=== PATIENT | female | born 1990 | race Caucasian/White ===

== ENCOUNTER 2016-07-02 23:43 | Emergency (ER) | payer OTHER ==
[~2016-07-02] VITALS: Ht 175.2 cm; Wt 72.6 kg
[~2016-07-02 23:43] MED LIST: ALBUTEROL0.09 MG/A2 IH; AMOXICILLIN500 M2 PO; AMOXICILLIN500 MG PO; AMOXIL500 MG PO; ANTI-FUNGAL1% TP; ANTIVERT/2525 MG PO; AUGMENTIN 875 M1 TAB PO; AUGMENTIN 875875 MG PO; BACTRIM DS 8001 TA1 PO; BIAXIN500 MG PO; BIRTH CONTROL1 EAC1 PO; CARDI-OMEGA1000 MG PO; CELEXA10 MG PO; CIPRO250 MG PO; CLARITIN10 MG PO; CODEINE/GUAIFE120 M2 PO; DEBROX 15 ML 1515 ML OT; FERROUS SULFAT325 MG PO; FLEXERIL10 MG PO; FLEXERIL5 MG PO; Fioricet 325 MG1 TAB PO; KEFLEX500 MG PO; LEVOFLOXACIN500 MG PO; LOMOTIL 0.025 M1 TA1 PO; MACROBID100 M1 PO; MEDROL DOSEPAK4 MG PO; MOTRIN600 MG PO; MOTRIN800 MG PO; NITROFURANTOIN100 MG PO; NKHM; NO DAILY MEDS; PEPCID20 MG PO; PREDNICOT20 MG PO; PREDNISONE20 MG PO; PRENATAL1 TA2 PO; PRENATAL1 TA7 PO; PROVENTIL0.09 MG/AC IH; PSEUDOEPHEDRINE60 MG PO; PYRIDIUM200 MG PO; SEPTRA DS 800 M1 TAB PO; TOBRADEX 0.1%-0.5 ML OPH; TRAMADOL HCL50 MG PO; TYLENOL WITH CO1 TAB PO; ZANTAC 150150 MG PO; ZANTAC150 MG PO; ZITHROMAX Z PA250 MG PO; ZITHROMAX250 MG PO; ZOFRAN ODT4 MG SL; ZOFRAN4 MG PO; ZYRTEC10 MG PO; Zofran4 MG; Zofran4 MG PO
[2016-07-03] MEDS ORDERED: BACTRIM DS 8001 TA1 PO (00:09)
[2016-07-03] MEDS ORDERED: NAPROSYN500 MG PO (00:09)
[2016-07-03] MEDS ORDERED: CEPHALEXIN500 M1 PO (00:09)
== END 2016-07-03 00:16 | disposition home or self-care (01) ==
LOC: ED 23:43
DX: J34.0 Abscess, furuncle and carbuncle of nose (principal); F17.200 Nicotine dependence, unspecified, uncomplicated; Z90.49 Acquired absence of other specified parts of digestive tract

== ENCOUNTER 2016-09-25 16:06 | Emergency (ER) | payer OTHER ==
[~2016-09-25] VITALS: Wt 72.6 kg
[~2016-09-25 16:06] MED LIST changes: +CEPHALEXIN500 M1 PO; +NAPROSYN500 MG PO
[2016-09-25 16:42] LABS: BILIRUBIN 1+ (NEGATIVE); BLOOD TRACE-INTACT (NEGATIVE); CLARITY CLOUDY (CLEAR); COLOR YELLOW (YELLOW); GLUCOSE NEGATIVE (NEGATIVE); KETONE NEGATIVE (NEGATIVE); LEUKO ESTERASE 1+ (NEGATIVE); NITRITE NEGATIVE (NEGATIVE); PH 5.5 (5.0-9.0); PROTEIN TRACE (NEGATIVE); SPECIFIC GRAVITY >= 1.030 (1.005-1.030)
[2016-09-25 17:03] LABS: BASO % 0.4 % (0.0-1.0); EOS # 0.2 10*3/uL (0.0-0.4); EOS % 1.8 % (1.0-4.0); HEMATOCRIT 40.7 % (37.0-47.0); HEMOGLOBIN 13.9 g/dl (12.0-16.0); LYMPH # 2.1 10*3/uL (1.3-4.4); LYMPH % 22.4 % (27.0-41.0); MEAN CELL VOLUME 89.8 fl (81.0-99.0); MEAN CORPUSCULAR HGB 30.7 pg (27.0-31.0); MEAN CORPUSCULAR HGB CONC 34.2 g/dl (33.0-37.0); MEAN PLATELET VOLUME 11.1 fl (9.6-12.3); MONO # 0.6 10*3/uL (0.1-1.0); MONO % 6.4 % (3.0-9.0); NEUT # 6.5 10*3/uL (2.3-7.9); NEUT % 68.6 % (47.0-73.0); PLATELET COUNT AUTOMATED 144 10*3/uL (130-400); RED BLOOD COUNT 4.53 10*6/uL (4.10-5.10); RED CELL DISTRI WIDTH 12.3 % (0-14.5); WHITE BLOOD COUNT 9.5 10*3/uL (4.8-10.8)
[2016-09-25 17:04] LABS: BACTERIA 2+; MUCOUS 1+; RBC 0-2 rbc/hpf (0-2); URINE REFLEX COMMENT YES (NO)
[2016-09-25 17:20] LABS: ALBUMIN 3.8 gm/dl (3.1-4.5); ALKALINE PHOSPHATASE 53 U/L (45-117); BILIRUBIN, TOTAL 0.9 mg/dl (0.2-1.0); BUN 9 mg/dl (7-24); CARBON DIOXIDE 24 mmol/L (21-32); CHLORIDE 108 mmol/L (98-107); EST GLOM FILT AFRICAN AMERICAN > 60 ml/min; GLUCOSE 79 mg/dL (65-99); SGOT/AST 12 IU/L (3-35); SGPT/ALT 20 U/L (12-78); SODIUM 141 mmol/L (136-145); TOTAL PROTEIN 6.5 gm/dL (6.4-8.2)
[2016-09-25 17:23] LABS: B-hCG (QUALITATIVE) NEGATIVE (NEGATIVE)
[2016-09-25] MEDS ORDERED: BACTRIM DS 8001 TA1 PO (19:21)
== END 2016-09-25 19:22 | disposition home or self-care (01) ==
LOC: ED 16:06
PROVIDERS: Emergency Medicine; Physician Assistant
DX: N30.01 Acute cystitis with hematuria (principal); F17.200 Nicotine dependence, unspecified, uncomplicated; Z90.49 Acquired absence of other specified parts of digestive tract

== ENCOUNTER → 2016-10-04 | Outpatient (CLI) | payer OTHER | END | disposition home or self-care (01) | LOC: US 12:07 | DX: R10.2 Pelvic and perineal pain (principal); R10.32 Left lower quadrant pain ==

== ENCOUNTER 2017-01-13 09:44 | Emergency (ER) | payer OTHER ==
[~2017-01-13] VITALS: Ht 175.2 cm; Wt 68.0 kg
[2017-01-13 10:17] LABS: BASO % 0.3 % (0.0-1.0); EOS # 0.1 10*3/uL (0.0-0.4); EOS % 1.5 % (1.0-4.0); HEMATOCRIT 43.7 % (37.0-47.0); HEMOGLOBIN 14.7 g/dl (12.0-16.0); LYMPH # 2.2 10*3/uL (1.3-4.4); LYMPH % 23.8 % (27.0-41.0); MEAN CELL VOLUME 91.8 fl (81.0-99.0); MEAN CORPUSCULAR HGB 30.9 pg (27.0-31.0); MEAN CORPUSCULAR HGB CONC 33.6 g/dl (33.0-37.0); MEAN PLATELET VOLUME 11.1 fl (9.6-12.3); MONO # 0.9 10*3/uL (0.1-1.0); MONO % 9.8 % (3.0-9.0); NEUT # 5.8 10*3/uL (2.3-7.9); NEUT % 64.3 % (47.0-73.0); PLATELET COUNT AUTOMATED 163 10*3/uL (130-400); RED BLOOD COUNT 4.76 10*6/uL (4.10-5.10); RED CELL DISTRI WIDTH 12.6 % (0-14.5); WHITE BLOOD COUNT 9.1 10*3/uL (4.8-10.8)
[2017-01-13 10:17] LABS: BILIRUBIN NEGATIVE (NEGATIVE); BLOOD 3+ (NEGATIVE); CLARITY CLOUDY (CLEAR); COLOR YELLOW (YELLOW); GLUCOSE NEGATIVE (NEGATIVE); KETONE NEGATIVE (NEGATIVE); LEUKO ESTERASE 3+ (NEGATIVE); NITRITE POSITIVE (NEGATIVE); PH 5.5 (5.0-9.0); PROTEIN 2+ (NEGATIVE); SPECIFIC GRAVITY 1.025 (1.005-1.030); UROBILINOGEN 0.2 E.U./dl (0.2-1.0)
[2017-01-13 10:22] LABS: URINE REFLEX COMMENT YES (NO)
[2017-01-13 10:25] LABS: BACTERIA 4+; RBC TNTC rbc/hpf (0-2); WBC TNTC wbc/hpf (0-5)
[2017-01-13 10:34] LABS: ALBUMIN 3.8 gm/dl (3.1-4.5); ALKALINE PHOSPHATASE 57 U/L (45-117); BILIRUBIN, TOTAL 0.5 mg/dl (0.2-1.0); BUN 9 mg/dl (7-24); CARBON DIOXIDE 25 mmol/L (21-32); CHLORIDE 107 mmol/L (98-107); EST GLOM FILT AFRICAN AMERICAN > 60 ml/min; GLUCOSE 89 mg/dL (65-99); POTASSIUM 4.1 mmol/L (3.5-5.1); SGOT/AST 11 IU/L (3-35); SGPT/ALT 17 U/L (12-78); SODIUM 140 mmol/L (136-145); TOTAL PROTEIN 7.4 gm/dL (6.4-8.2)
[2017-01-13] MEDS ORDERED: CIPRO500 MG PO (12:47)
[2017-01-13] MEDS ORDERED: NAPROSYN500 MG PO (12:47)
[2017-01-13] MEDS ORDERED: PYRIDIUM200 M1 PO (12:47)
== END 2017-01-13 12:53 | disposition home or self-care (01) ==
LOC: ED 09:44
PROVIDERS: Nurse Practitioner Family
DX: N39.0 Urinary tract infection, site not specified (principal); N83.202 Unspecified ovarian cyst, left side; F17.200 Nicotine dependence, unspecified, uncomplicated; Z90.49 Acquired absence of other specified parts of digestive tract; Z79.899 Other long term (current) drug therapy

== ENCOUNTER → 2017-01-15 | Outpatient (CLI) | payer OTHER ==
[~2017-01-15] MED LIST changes: +CIPRO500 MG PO; +PYRIDIUM200 M1 PO
== END | disposition home or self-care (01) ==
LOC: US 09:57
DX: R10.2 Pelvic and perineal pain (principal)

== ENCOUNTER → 2017-02-05 | Day surgery (SDC) | payer OTHER ==
[2017-02-01 11:13] LABS: BASO # 0.1 10*3/uL (0.0-0.1); BASO % 0.6 % (0.0-1.0); EOS # 0.3 10*3/uL (0.0-0.4); EOS % 3.1 % (1.0-4.0); HEMATOCRIT 45.9 % (37.0-47.0); HEMOGLOBIN 15.4 g/dl (12.0-16.0); LYMPH # 2.5 10*3/uL (1.3-4.4); LYMPH % 28.3 % (27.0-41.0); MEAN CELL VOLUME 91.6 fl (81.0-99.0); MEAN CORPUSCULAR HGB 30.7 pg (27.0-31.0); MEAN CORPUSCULAR HGB CONC 33.6 g/dl (33.0-37.0); MONO # 0.6 10*3/uL (0.1-1.0); MONO % 7.1 % (3.0-9.0); NEUT # 5.3 10*3/uL (2.3-7.9); NEUT % 60.7 % (47.0-73.0); PLATELET COUNT AUTOMATED 197 10*3/uL (130-400); RED BLOOD COUNT 5.01 10*6/uL (4.10-5.10); RED CELL DISTRI WIDTH 12.7 % (0-14.5); WHITE BLOOD COUNT 8.8 10*3/uL (4.8-10.8)
[~2017-02-05] VITALS: Ht 175.2 cm; Wt 69.4 kg
[2017-02-05] VITALS (7 sets, daily range): BP systolic 112–126; BP diastolic 61–80
[~2017-02-05] MED LIST changes: +PERCOCET 325 MG1 TA5 PO
--- NOTE | ~2017-02-05 | O ---
[place], [place] OPERATIVE NOTE [facility]: 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 PROCEDURE: Diagnostic and operative laparoscopy and left salpingo-oophorectomy as well as obtaining posterior cul-de-sac fluid for cytology. SURGEON: Griselda Ramirez M.D. ANESTHESIA: General. ESTIMATED BLOOD LOSS: Minimal. REPLACEMENTS: IV fluids and Toradol. COMPLICATIONS: There were no complications. CONDITION: The patient's condition to recovery stable. OPERATIVE SUMMARY: The patient was taken to the operating room in supine position, general anesthesia, endotracheal intubation, lithotomy position, prepped and draped in routine manner. Rojas catheter was placed to straight drain and the cervix was then grasped with tenaculum and a cervical manipulator placed. Infraumbilical suprapubic and right lower quadrant incisions were made. Through the infraumbilical incision, a 5 mm trocar sleeve and laparoscope were placed under direct visualization followed by insufflation of CO2. Once that was completed, the suprapubic 5 mm trocar and sleeve were placed and after we had performed an evaluation revealing the uterus to be consistent with adenomyosis being extremely compressible, but otherwise normal in size, configuration, mobility and after noting that the anterior cul-de-sac was normal, the right tube and ovary was normal. The left tube was normal, but the left ovary revealed a rather elongated large cystic structure again with no apparent viable ovarian tissue noted. After again looking at the posterior cul-de-sac and removing the peritoneal fluid for cytology, we examined the upper abdomen revealing no atypicalities. The appendix, liver edge, colon, inferior gastric edge, etc., were all completely within normal limits with no gross atypicalities apparent in the upper abdomen. We then introduced through right lower quadrant incision, a larger trocar and sleeve, so we could use the EndoCatch through. We introduced our LigaSure and performed a left salpingo-oophorectomy without complication and placed the left ovary and tube in the EndoCatch bag. We pulled it to the surface. We partially drained the cyst to allow us to then remove the ovary and cyst within the EndoCatch bag intact. We drained any fluid from this exterior to the abdomen as a precaution. Once this was completed, we observed carefully operative sites. We looked at the ureters noted to be peristalsing normally and nondistended. We observed again the rest of the pelvis one more time and revealed no gross abnormalities. We [place], [place] OPERATIVE NOTE NAME: ORLY ROGERS UNIT #: [id number] ROOM: DOCTOR: GRISELDA RAMIREZ MD BIRTHDATE: [birth year] then closed the right lower quadrant incision with a running intermittent and locking 0 Vicryl suture for the fascia, #2 interrupted 3-0 Vicryl, 3-0 Monocryl sutures, subcutaneous tissue and the skin was closed with several subcuticular 3-0 Monocryl sutures whereas the other 2 incisions had a subcuticular placement of 3-0 Monocryl suture and all had Steri-Strips and dressings placed. We then removed the Rojas and noted about 300 mL of clear urine and finally removed instrumentation from the cervix and noted good hemostasis, thereafter. The patient was cleaned off, taken out of lithotomy position, awakened, extubated and transferred to recovery in satisfactory condition with stable sponge and instrument count, good hemostasis and stable vital signs. GRISELDA RAMIREZ MD CM:OPRECORD:OPERATIVE NOTE [id number] JAMES RAMIREZ MD 02/05/17 1200 interface
== END | disposition home or self-care (01) ==
LOC: SDC 02-01 10:15
PROVIDERS: Obstetrics & Gynecology
DX: N83.8 Other noninflammatory disorders of ovary, fallopian tube and broad ligament (principal); F17.210 Nicotine dependence, cigarettes, uncomplicated; J45.909 Unspecified asthma, uncomplicated; Z90.49 Acquired absence of other specified parts of digestive tract; Z88.8 Allergy status to other drugs, medicaments and biological substances; Z80.42 Family history of malignant neoplasm of prostate; Z80.0 Family history of malignant neoplasm of digestive organs

== ENCOUNTER 2017-03-20 21:02 | Emergency (ER) | payer OTHER ==
[~2017-03-20] VITALS: Ht 175.2 cm; Wt 70.3 kg
[2017-03-20] MEDS ORDERED: ZOLOFT25 MG PO (21:13)
[2017-03-20 21:51] LABS: BASO % 0.4 % (0.0-1.0); EOS # 0.2 10*3/uL (0.0-0.4); EOS % 1.7 % (1.0-4.0); HEMATOCRIT 40.6 % (37.0-47.0); HEMOGLOBIN 13.7 g/dl (12.0-16.0); LYMPH # 2.2 10*3/uL (1.3-4.4); LYMPH % 24.3 % (27.0-41.0); MEAN CELL VOLUME 93.1 fl (81.0-99.0); MEAN CORPUSCULAR HGB 31.4 pg (27.0-31.0); MEAN CORPUSCULAR HGB CONC 33.7 g/dl (33.0-37.0); MEAN PLATELET VOLUME 10.7 fl (9.6-12.3); MONO # 0.5 10*3/uL (0.1-1.0); MONO % 5.8 % (3.0-9.0); NEUT # 6.1 10*3/uL (2.3-7.9); NEUT % 67.5 % (47.0-73.0); PLATELET COUNT AUTOMATED 181 10*3/uL (130-400); RED BLOOD COUNT 4.36 10*6/uL (4.10-5.10); RED CELL DISTRI WIDTH 12.1 % (0-14.5); WHITE BLOOD COUNT 9.1 10*3/uL (4.8-10.8)
[2017-03-20 22:08] LABS: ALBUMIN 3.7 gm/dl (3.1-4.5); ALKALINE PHOSPHATASE 53 U/L (45-117); BUN 15 mg/dl (7-24); CHLORIDE 107 mmol/L (98-107); CREATININE 0.87 mg/dL (0.55-1.02); POTASSIUM 3.7 mmol/L (3.5-5.1); SGOT/AST 9 IU/L (3-35); SGPT/ALT 13 U/L (12-78); SODIUM 140 mmol/L (136-145); TOTAL PROTEIN 6.9 gm/dL (6.4-8.2)
[2017-03-20 22:10] LABS: TROPONIN I < 0.015 ng/ml (<0.045)
== END 2017-03-21 00:45 | disposition home or self-care (01) ==
LOC: ED 21:02
PROVIDERS: Emergency Medicine Emergency Medical Services
DX: R55 Syncope and collapse (principal); F17.200 Nicotine dependence, unspecified, uncomplicated; Z90.49 Acquired absence of other specified parts of digestive tract; Z79.899 Other long term (current) drug therapy; Z88.6 Allergy status to analgesic agent

== ENCOUNTER 2017-08-06 10:35 | Emergency (ER) | payer OTHER ==
[~2017-08-06] VITALS: Ht 175.2 cm; Wt 72.6 kg
[~2017-08-06 10:35] MED LIST changes: +ZOLOFT25 MG PO
[2017-08-06] MEDS ORDERED: MIRENA1 EACH IU (10:47)
[2017-08-06 11:14] LABS: BILIRUBIN NEGATIVE (NEGATIVE); BLOOD NEGATIVE (NEGATIVE); CLARITY CLEAR (CLEAR); COLOR YELLOW (YELLOW); GLUCOSE NEGATIVE (NEGATIVE); KETONE NEGATIVE (NEGATIVE); LEUKO ESTERASE NEGATIVE (NEGATIVE); NITRITE NEGATIVE (NEGATIVE); PH 5.5 (5.0-9.0); SPECIFIC GRAVITY 1.025 (1.005-1.030); UROBILINOGEN 0.2 E.U./dl (0.2-1.0)
[2017-08-06 11:25] LABS: BASO # 0.1 10*3/uL (0.0-0.1); BASO % 0.6 % (0.0-1.0); EOS # 0.2 10*3/uL (0.0-0.4); EOS % 2.3 % (1.0-4.0); HEMATOCRIT 43.9 % (37.0-47.0); LYMPH # 2.3 10*3/uL (1.3-4.4); MEAN CELL VOLUME 91.8 fl (81.0-99.0); MEAN CORPUSCULAR HGB 31.4 pg (27.0-31.0); MEAN CORPUSCULAR HGB CONC 34.2 g/dl (33.0-37.0); MEAN PLATELET VOLUME 11.4 fl (9.6-12.3); MONO # 0.5 10*3/uL (0.1-1.0); MONO % 5.4 % (3.0-9.0); NEUT # 5.2 10*3/uL (2.3-7.9); NEUT % 63.3 % (47.0-73.0); PLATELET COUNT AUTOMATED 167 10*3/uL (130-400); RED BLOOD COUNT 4.78 10*6/uL (4.10-5.10); RED CELL DISTRI WIDTH 12.2 % (0-14.5); WHITE BLOOD COUNT 8.3 10*3/uL (4.8-10.8)
[2017-08-06 11:40] LABS: BACTERIA 1+; WBC 0-2 wbc/hpf (0-5)
[2017-08-06 11:44] LABS: ALBUMIN 4.1 gm/dl (3.1-4.5); ALKALINE PHOSPHATASE 61 U/L (45-117); BUN 12 mg/dl (7-24); CHLORIDE 109 mmol/L (98-107); CREATININE 0.67 mg/dL (0.55-1.02); SGOT/AST 12 IU/L (3-35); SGPT/ALT 35 U/L (12-78); SODIUM 141 mmol/L (136-145); TOTAL PROTEIN 7.4 gm/dL (6.4-8.2)
[2017-08-06 11:45] LABS: FREE T4 0.88 ng/dl (0.76-1.46)
[2017-08-06 11:51] LABS: B-hCG (QUALITATIVE) NEGATIVE (NEGATIVE)
== END 2017-08-06 12:38 | disposition home or self-care (01) ==
LOC: ED 10:35
PROVIDERS: Physician Assistant
DX: R55 Syncope and collapse (principal); F17.200 Nicotine dependence, unspecified, uncomplicated; Z90.49 Acquired absence of other specified parts of digestive tract; Z79.899 Other long term (current) drug therapy

== ENCOUNTER → 2017-08-29 | Outpatient (CLI) | payer OTHER ==
[~2017-08-29] MED LIST changes: +MIRENA1 EACH IU
[2017-08-30 07:05] LABS: ESTRADIOL 88.8 pg/mL (.); FOLLICLE STIMULATING HORMONE 3.3 mIU/mL (.); LUTEINIZING HORMONE 004283 2.8 mIU/mL (.)
== END | disposition home or self-care (01) ==
LOC: LAB 08:58
PROVIDERS: Family Medicine
DX: E55.9 Vitamin D deficiency, unspecified (principal); N95.1 Menopausal and female climacteric states

== ENCOUNTER → 2018-05-06 | Outpatient (CLI) | payer OTHER | END | disposition home or self-care (01) | LOC: US 10:04 | DX: R10.2 Pelvic and perineal pain (principal); Z90.721 Acquired absence of ovaries, unilateral ==

== ENCOUNTER 2018-07-17 06:25 | Emergency (ER) | payer OTHER ==
[~2018-07-17] VITALS: Ht 175.2 cm; Wt 72.6 kg
[2018-07-17] MEDS ORDERED: ZOFRAN4 MG PO (07:37)
[2018-07-17 07:48] LABS: BASO % 0.4 % (0.0-1.0); EOS # 0.3 10*3/uL (0.0-0.4); EOS % 3.1 % (1.0-4.0); HEMATOCRIT 43.4 % (37.0-47.0); HEMOGLOBIN 14.3 g/dl (12.0-16.0); LYMPH # 2.1 10*3/uL (1.3-4.4); LYMPH % 25.3 % (27.0-41.0); MEAN CELL VOLUME 95.4 fl (81.0-99.0); MEAN CORPUSCULAR HGB 31.4 pg (27.0-31.0); MEAN CORPUSCULAR HGB CONC 32.9 g/dl (33.0-37.0); MEAN PLATELET VOLUME 10.8 fl (9.6-12.3); MONO # 0.6 10*3/uL (0.1-1.0); MONO % 7.2 % (3.0-9.0); NEUT # 5.4 10*3/uL (2.3-7.9); NEUT % 63.8 % (47.0-73.0); PLATELET COUNT AUTOMATED 158 10*3/uL (130-400); RED BLOOD COUNT 4.55 10*6/uL (4.10-5.10); RED CELL DISTRI WIDTH 12.4 % (0-14.5); WHITE BLOOD COUNT 8.4 10*3/uL (4.8-10.8)
[2018-07-17 08:05] LABS: ALBUMIN 3.7 gm/dl (3.1-4.5); ALKALINE PHOSPHATASE 49 U/L (45-117); BUN 11 mg/dl (7-24); CHLORIDE 109 mmol/L (98-107); CREATININE 0.64 mg/dL (0.55-1.02); LIPASE 99 U/L (73-393); POTASSIUM 4.1 mmol/L (3.5-5.1); SGOT/AST 9 IU/L (3-35); SGPT/ALT 31 U/L (12-78); SODIUM 138 mmol/L (136-145); TOTAL PROTEIN 6.8 gm/dL (6.4-8.2)
[2018-07-17 08:20] LABS: BILIRUBIN NEGATIVE (NEGATIVE); BLOOD NEGATIVE (NEGATIVE); CLARITY SL CLOUDY (CLEAR); COLOR YELLOW (YELLOW); GLUCOSE NEGATIVE (NEGATIVE); KETONE NEGATIVE (NEGATIVE); LEUKO ESTERASE NEGATIVE (NEGATIVE); NITRITE NEGATIVE (NEGATIVE); PH 5.5 (5.0-9.0); SPECIFIC GRAVITY >= 1.030 (1.005-1.030); UROBILINOGEN 0.2 E.U./dl (0.2-1.0)
[2018-07-17 08:44] LABS: MUCOUS TRACE
== END 2018-07-17 08:31 | disposition home or self-care (01) ==
LOC: ED 06:25
PROVIDERS: Emergency Medicine
DX: R10.9 Unspecified abdominal pain (principal); R11.2 Nausea with vomiting, unspecified; R19.7 Diarrhea, unspecified; K59.00 Constipation, unspecified; F43.9 Reaction to severe stress, unspecified; F32.9 Major depressive disorder, single episode, unspecified; R07.0 Pain in throat; F12.90 Cannabis use, unspecified, uncomplicated; Z90.49 Acquired absence of other specified parts of digestive tract; Z97.5 Presence of (intrauterine) contraceptive device

== ENCOUNTER → 2018-08-07 | Outpatient (CLI) | payer OTHER ==
[2018-08-07 16:42] LABS: BASO % 0.4 % (0.0-1.0); EOS # 0.2 10*3/uL (0.0-0.4); EOS % 1.9 % (1.0-4.0); HEMATOCRIT 44.8 % (37.0-47.0); HEMOGLOBIN 15.5 g/dl (12.0-16.0); LYMPH # 3.1 10*3/uL (1.3-4.4); LYMPH % 29.7 % (27.0-41.0); MEAN CELL VOLUME 93.1 fl (81.0-99.0); MEAN CORPUSCULAR HGB 32.2 pg (27.0-31.0); MEAN CORPUSCULAR HGB CONC 34.6 g/dl (33.0-37.0); MEAN PLATELET VOLUME 10.8 fl (9.6-12.3); MONO # 0.7 10*3/uL (0.1-1.0); MONO % 6.4 % (3.0-9.0); NEUT # 6.3 10*3/uL (2.3-7.9); NEUT % 61.2 % (47.0-73.0); PLATELET COUNT AUTOMATED 214 10*3/uL (130-400); RED BLOOD COUNT 4.81 10*6/uL (4.10-5.10); RED CELL DISTRI WIDTH 12.4 % (0-14.5); WHITE BLOOD COUNT 10.3 10*3/uL (4.8-10.8)
[2018-08-07 17:14] LABS: ALKALINE PHOSPHATASE 55 U/L (45-117); BUN 11 mg/dl (7-24); CHLORIDE 110 mmol/L (98-107); CREATININE 0.76 mg/dL (0.55-1.02); POTASSIUM 3.6 mmol/L (3.5-5.1); SGOT/AST 18 IU/L (3-35); SGPT/ALT 24 U/L (12-78); SODIUM 141 mmol/L (136-145); TOTAL PROTEIN 7.5 gm/dL (6.4-8.2)
== END | disposition home or self-care (01) ==
LOC: LAB 16:17
PROVIDERS: Internal Medicine Gastroenterology
DX: R10.9 Unspecified abdominal pain (principal)

== ENCOUNTER 2018-09-29 08:23 | Emergency (ER) | payer OTHER ==
[~2018-09-29] VITALS: Ht 175.2 cm; Wt 72.6 kg
[2018-09-29] MEDS ORDERED: CHANTIX1 M1 PO (08:39)
== END 2018-09-29 09:20 | disposition home or self-care (01) ==
LOC: ED 08:23
DX: S49.92XA Unspecified injury of left shoulder and upper arm, initial encounter (principal); F17.200 Nicotine dependence, unspecified, uncomplicated; W51.XXXA Accidental striking against or bumped into by another person, initial encounter; Y93.89 Activity, other specified; Y92.89 Other specified places as the place of occurrence of the external cause; Y99.8 Other external cause status

== ENCOUNTER 2019-01-17 09:25 | Emergency (ER) | payer OTHER ==
[~2019-01-17] VITALS: Ht 175.2 cm; Wt 72.6 kg
[~2019-01-17 09:25] MED LIST changes: +CHANTIX1 M1 PO
[2019-01-17] MEDS ORDERED: AUGMENTIN 875-875 MG PO (09:34)
[2019-01-17] MEDS ORDERED: NAPROSYN500 MG PO (09:34)
[2019-01-17] MEDS ORDERED: OMEPRAZOLE40 MG PO (09:36)
[2019-01-17] MEDS ORDERED: ADVIL200 MG PO (09:37)
== END 2019-01-17 09:57 | disposition home or self-care (01) ==
LOC: ED 09:25
DX: K04.7 Periapical abscess without sinus (principal); F17.200 Nicotine dependence, unspecified, uncomplicated; Z79.899 Other long term (current) drug therapy; Z90.49 Acquired absence of other specified parts of digestive tract

== ENCOUNTER 2019-04-29 23:49 | Emergency (ER) | payer SELFPAY ==
[~2019-04-29] VITALS: Ht 175.2 cm; Wt 72.6 kg
[~2019-04-29 23:49] MED LIST changes: +ADVIL200 MG PO; +AUGMENTIN 875-875 MG PO; +OMEPRAZOLE40 MG PO
[2019-04-30] MEDS ORDERED: AMOXICILLIN500 M2 PO (00:12)
[2019-04-30] MEDS ORDERED: Motrin,Rufen800 MG PO (00:12)
[2019-05-01] MEDS ORDERED: AUGMENTIN 875875 MG PO (13:02)
[2019-05-01] MEDS ORDERED: IBUPROFEN600 MG PO (13:02)
== END 2019-04-30 01:20 | disposition home or self-care (01) ==
LOC: ED 23:49
DX: K08.89 Other specified disorders of teeth and supporting structures (principal); R68.84 Jaw pain; Z79.899 Other long term (current) drug therapy

== ENCOUNTER 2019-05-01 12:23 | Emergency (ER) | payer SELFPAY ==
[~2019-05-01] VITALS: Ht 175.2 cm; Wt 72.6 kg
[~2019-05-01 12:23] MED LIST changes: +Motrin,Rufen800 MG PO
[2019-05-01] MEDS ORDERED: AUGMENTIN 875875 MG PO (13:02)
[2019-05-01] MEDS ORDERED: IBUPROFEN600 MG PO (13:02)
== END 2019-05-01 13:17 | disposition home or self-care (01) ==
LOC: ED 12:23
DX: K04.7 Periapical abscess without sinus (principal); J45.909 Unspecified asthma, uncomplicated; Z79.899 Other long term (current) drug therapy

== ENCOUNTER 2019-06-12 02:46 | Emergency (ER) | payer SELFPAY ==
[~2019-06-12] VITALS: Ht 175.2 cm; Wt 72.6 kg
[~2019-06-12 02:46] MED LIST changes: +IBUPROFEN600 MG PO
[2019-06-12] MEDS ORDERED: CLINDAMYCIN HC300 MG PO (03:18)
== END 2019-06-12 03:31 | disposition home or self-care (01) ==
LOC: ED 02:46
DX: K04.7 Periapical abscess without sinus (principal); Z79.899 Other long term (current) drug therapy

== ENCOUNTER 2020-02-10 10:13 | Emergency (ER) | payer OTHER ==
[~2020-02-10] VITALS: Ht 175.2 cm; Wt 72.6 kg
[~2020-02-10 10:13] MED LIST changes: +CLINDAMYCIN HC300 MG PO
[2020-02-10] MEDS ORDERED: AUGMENTIN 875-875 MG PO (10:53)
[2020-02-10] MEDS ORDERED: NORCO 5-325 TA1 EACH PO (10:53)
== END 2020-02-10 11:12 | disposition home or self-care (01) ==
LOC: ED 10:13
DX: K02.9 Dental caries, unspecified (principal); J45.909 Unspecified asthma, uncomplicated; R56.9 Unspecified convulsions; F17.200 Nicotine dependence, unspecified, uncomplicated; Z90.49 Acquired absence of other specified parts of digestive tract; Z79.899 Other long term (current) drug therapy

== ENCOUNTER 2020-04-29 16:42 | Emergency (ER) | payer OTHER ==
[~2020-04-29] VITALS: Ht 175.2 cm; Wt 72.6 kg
[~2020-04-29 16:42] MED LIST changes: +NORCO 5-325 TA1 EACH PO
[2020-04-29] MEDS ORDERED: PREDNISONE20 M1 PO (17:52)
== END 2020-04-29 18:11 ==
LOC: ED 16:42
DX: L25.9 Unspecified contact dermatitis, unspecified cause (principal); Z79.899 Other long term (current) drug therapy

== ENCOUNTER 2021-03-12 08:44 | Emergency (ER) | payer SELFPAY ==
[~2021-03-12] VITALS: Ht 175.2 cm; Wt 72.6 kg
[~2021-03-12 08:44] MED LIST changes: +PREDNISONE20 M1 PO
== END 2021-03-12 09:49 | disposition home or self-care (01) ==
LOC: ED 08:44
DX: Z11.3 Encounter for screening for infections with a predominantly sexual mode of transmission (principal); Z20.2 Contact with and (suspected) exposure to infections with a predominantly sexual mode of transmission; Z90.49 Acquired absence of other specified parts of digestive tract; Z79.899 Other long term (current) drug therapy

== ENCOUNTER 2021-06-12 20:31 | Emergency (ER) | payer OTHER ==
[~2021-06-12] VITALS: Ht 175.2 cm; Wt 72.6 kg
[2021-06-12] MEDS ORDERED: ZITHROMAX250 MG PO (20:44)
[2021-06-12 21:35] LABS: BASO % 0.5 % (0.0-1.0); EOS # 0.4 10*3/uL (0.0-0.4); EOS % 5.1 % (1.0-4.0); HEMATOCRIT 41.5 % (37.0-47.0); LYMPH # 2.9 10*3/uL (1.3-4.4); LYMPH % 36.9 % (27.0-41.0); MEAN CELL VOLUME 94.1 fl (81.0-99.0); MEAN CORPUSCULAR HGB 31.7 pg (27.0-31.0); MEAN CORPUSCULAR HGB CONC 33.7 g/dl (33.0-37.0); MEAN PLATELET VOLUME 10.3 fl (9.6-12.3); MONO # 0.6 10*3/uL (0.1-1.0); MONO % 7.1 % (3.0-9.0); NEUT # 3.9 10*3/uL (2.3-7.9); PLATELET COUNT AUTOMATED 188 10*3/uL (130-400); RED BLOOD COUNT 4.41 10*6/uL (4.10-5.10); RED CELL DISTRI WIDTH 12.3 % (0-14.5); WHITE BLOOD COUNT 7.8 10*3/uL (4.8-10.8)
[2021-06-12 21:51] LABS: ALBUMIN 2.9 gm/dl (3.1-4.5); ALKALINE PHOSPHATASE 51 U/L (45-117); BUN 11 mg/dl (7-24); CHLORIDE 108 mmol/L (98-107); CREATININE 0.54 mg/dL (0.55-1.02); LIPASE < 10 U/L (73-393); POTASSIUM 4.1 mmol/L (3.5-5.1); SGOT/AST 8 IU/L (3-35); SGPT/ALT 20 U/L (12-78); SODIUM 139 mmol/L (136-145); TOTAL PROTEIN 6.9 gm/dL (6.4-8.2)
[2021-06-12 22:26] LABS: BILIRUBIN Negative (Negative); BLOOD 3+ (Negative); CLARITY Cloudy (Clear); COLOR Yellow (Yellow); GLUCOSE Negative (Negative); KETONE Negative (Negative); LEUKO ESTERASE Negative (Negative); NITRITE Negative (Negative); SPECIFIC GRAVITY 1.025 (1.001-1.030); UROBILINOGEN 0.2 E.U./dl (0.0-1.0)
[2021-06-12 22:50] LABS: BACTERIA 1+; EPITHELIAL CELLS 16-20; RBC 31-40 rbc/hpf (0-2)
[2021-06-12] MEDS ORDERED: CEPHALEXIN500 M1 PO (22:57)
== END 2021-06-13 02:42 | disposition home or self-care (01) ==
LOC: ED 20:31
PROVIDERS: Physician Assistant
DX: O98.511 Other viral diseases complicating pregnancy, first trimester (principal); U07.1 COVID-19; O99.281 Endocrine, nutritional and metabolic diseases complicating pregnancy, first trimester; E88.09 Other disorders of plasma-protein metabolism, not elsewhere classified; O20.0 Threatened abortion; Z90.49 Acquired absence of other specified parts of digestive tract; Z79.2 Long term (current) use of antibiotics; Z3A.01 Less than 8 weeks gestation of pregnancy

== ENCOUNTER → 2021-06-14 | Outpatient (CLI) | payer OTHER | END | disposition home or self-care (01) | LOC: LAB 11:08 | PROVIDERS: ATTEND Nurse Practitioner Women's Health | DX: O20.0 Threatened abortion (principal) ==

== ENCOUNTER 2021-07-17 14:19 | Emergency (ER) | payer OTHER ==
[~2021-07-17] VITALS: Wt 72.6 kg
[2021-07-17 15:26] LABS: BASO # 0.1 10*3/uL (0.0-0.1); BASO % 0.5 % (0.0-1.0); EOS # 0.1 10*3/uL (0.0-0.4); EOS % 0.8 % (1.0-4.0); HEMATOCRIT 44.5 % (37.0-47.0); LYMPH # 1.5 10*3/uL (1.3-4.4); LYMPH % 13.7 % (27.0-41.0); MEAN CELL VOLUME 95.5 fl (81.0-99.0); MEAN CORPUSCULAR HGB 32.2 pg (27.0-31.0); MEAN CORPUSCULAR HGB CONC 33.7 g/dl (33.0-37.0); MONO # 0.3 10*3/uL (0.1-1.0); MONO % 3.1 % (3.0-9.0); NEUT # 8.7 10*3/uL (2.3-7.9); NEUT % 81.5 % (47.0-73.0); PLATELET COUNT AUTOMATED 282 10*3/uL (130-400); RED BLOOD COUNT 4.66 10*6/uL (4.10-5.10); RED CELL DISTRI WIDTH 12.9 % (0-14.5); WHITE BLOOD COUNT 10.7 10*3/uL (4.8-10.8)
[2021-07-17 15:48] LABS: ALBUMIN 4.1 gm/dl (3.1-4.5); ALKALINE PHOSPHATASE 58 U/L (45-117); BUN 9 mg/dl (7-24); CHLORIDE 113 mmol/L (98-107); CREATININE 0.77 mg/dL (0.55-1.02); LIPASE 51 U/L (73-393); SGOT/AST 15 IU/L (3-35); SGPT/ALT 26 U/L (12-78); SODIUM 145 mmol/L (136-145); TOTAL PROTEIN 7.6 gm/dL (6.4-8.2)
[2021-07-17 16:53] LABS: BILIRUBIN Negative (Negative); BLOOD 3+ (Negative); CLARITY Cloudy (Clear); COLOR Yellow (Yellow); GLUCOSE Negative (Negative); KETONE Negative (Negative); LEUKO ESTERASE Trace (Negative); NITRITE Negative (Negative); SPECIFIC GRAVITY >= 1.030 (1.001-1.030); UROBILINOGEN 0.2 E.U./dl (0.0-1.0)
[2021-07-17 17:16] LABS: EPITHELIAL CELLS TNTC; RBC TNTC rbc/hpf (0-2)
[2021-07-17 17:17] LABS: BACTERIA 2+; MUCOUS 1+
[2021-07-17] MEDS ORDERED: ZOFRAN4 MG PO (17:49)
== END 2021-07-17 17:56 | disposition home or self-care (01) ==
LOC: ED 14:19
PROVIDERS: Physician Assistant
DX: A08.4 Viral intestinal infection, unspecified (principal); Z79.899 Other long term (current) drug therapy; Z90.49 Acquired absence of other specified parts of digestive tract

== ENCOUNTER 2021-12-25 07:18 | Emergency (ER) | payer OTHER ==
[~2021-12-25] VITALS: Ht 175.2 cm; Wt 72.6 kg
[2021-12-25] MEDS ORDERED: FLUOXETINE HCL10 MG PO (07:37)
[2021-12-25] MEDS ORDERED: BUSPAR5 MG PO (07:37)
[2021-12-25] MEDS ORDERED: CLINDAMYCIN HC300 MG PO (07:37)
[2021-12-25] MEDS ORDERED: AUGMENTIN 500500 M1 PO (07:38)
[2021-12-25] MEDS ORDERED: METRONIDAZOLE500 M1 PO (07:38)
[2021-12-25] MEDS ORDERED: TYLENOL325 M1 PO (07:39)
[2021-12-25] MEDS ORDERED: NAPROXEN250 MG PO (07:39)
== END 2021-12-25 07:57 | disposition home or self-care (01) ==
LOC: ED 07:18
DX: K02.9 Dental caries, unspecified (principal)

== ENCOUNTER → 2022-11-01 | Outpatient (CLI) | payer OTHER ==
[~2022-11-01] MED LIST changes: +AUGMENTIN 500500 M1 PO; +BUSPAR5 MG PO; +FLUOXETINE HCL10 MG PO; +METRONIDAZOLE500 M1 PO; +NAPROXEN250 MG PO; +TYLENOL325 M1 PO
== END | disposition home or self-care (01) ==
LOC: MAMMO 12:41
PROVIDERS: ATTEND Nurse Practitioner Women's Health
DX: N60.02 Solitary cyst of left breast (principal); N64.4 Mastodynia

== ENCOUNTER 2022-12-14 08:38 | Emergency (ER) | payer OTHER ==
[~2022-12-14] VITALS: Ht 175.2 cm; Wt 73.0 kg
[2022-12-14 09:16] LABS: BASO # 0.1 10*3/uL (0.0-0.1); BASO % 0.6 % (0.0-1.0); EOS # 0.2 10*3/uL (0.0-0.4); EOS % 1.7 % (1.0-4.0); HEMATOCRIT 43.1 % (37.0-47.0); LYMPH # 2.8 10*3/uL (1.3-4.4); LYMPH % 26.6 % (27.0-41.0); MEAN CELL VOLUME 95.4 fl (81.0-99.0); MEAN CORPUSCULAR HGB 32.7 pg (27.0-31.0); MEAN CORPUSCULAR HGB CONC 34.3 g/dl (33.0-37.0); MEAN PLATELET VOLUME 10.1 fl (9.6-12.3); MONO # 0.7 10*3/uL (0.1-1.0); MONO % 6.9 % (3.0-9.0); NEUT # 6.7 10*3/uL (2.3-7.9); NEUT % 63.9 % (47.0-73.0); PLATELET COUNT AUTOMATED 241 10*3/uL (130-400); RED BLOOD COUNT 4.52 10*6/uL (4.10-5.10); RED CELL DISTRI WIDTH 12.3 % (0-14.5); WHITE BLOOD COUNT 10.5 10*3/uL (4.8-10.8)
[2022-12-14 09:52] LABS: ALKALINE PHOSPHATASE 54 U/L (46-116); BUN 8 mg/dl (9-23); CHLORIDE 103 mmol/L (98-107); POTASSIUM 3.4 mmol/L (3.4-5.1); SGPT/ALT 21 U/L (10-49); TOTAL PROTEIN 7.3 gm/dL (6.0-8.0)
[2022-12-14 10:17] LABS: BILIRUBIN Negative (Negative); BLOOD 2+ (Negative); CLARITY Clear (Clear); COLOR Yellow (Yellow); GLUCOSE Negative (Negative); KETONE 1+ (Negative); LEUKO ESTERASE Trace (Negative); NITRITE Negative (Negative); PH 5.5 (4.5-8.0); SPECIFIC GRAVITY 1.025 (1.001-1.030); UROBILINOGEN 0.2 E.U./dl (0.0-1.0)
[2022-12-14 10:39] LABS: BACTERIA 1+; EPITHELIAL CELLS 51-100
== END 2022-12-14 12:19 | disposition home or self-care (01) ==
LOC: ED 08:38
PROVIDERS: Emergency Medicine
DX: O46.91 Antepartum hemorrhage, unspecified, first trimester (principal); J45.909 Unspecified asthma, uncomplicated; Z3A.01 Less than 8 weeks gestation of pregnancy; Z90.49 Acquired absence of other specified parts of digestive tract; Z98.890 Other specified postprocedural states; Z79.899 Other long term (current) drug therapy

== ENCOUNTER → 2022-12-18 | Outpatient (CLI) | payer OTHER | END | disposition home or self-care (01) | LOC: LAB 12:10 | PROVIDERS: ATTEND Nurse Practitioner Women's Health | DX: O20.9 Hemorrhage in early pregnancy, unspecified (principal) ==

== ENCOUNTER → 2023-05-14 | Outpatient (CLI) | payer OTHER | END | disposition home or self-care (01) | LOC: LAB 07:31 | PROVIDERS: ATTEND Nurse Practitioner Women's Health | DX: R73.02 Impaired glucose tolerance (oral) (principal) ==

== ENCOUNTER 2023-06-05 08:38 | Emergency (ER) | payer OTHER ==
[~2023-06-05] VITALS: Ht 175.2 cm; Wt 77.1 kg
[2023-06-05 09:44] LABS: BASO # 0.1 10*3/uL (0.0-0.1); BASO % 0.3 % (0.0-1.0); EOS # 0.2 10*3/uL (0.0-0.4); EOS % 0.9 % (1.0-4.0); HEMATOCRIT 41.9 % (37.0-47.0); LYMPH # 1.9 10*3/uL (1.3-4.4); LYMPH % 8.7 % (27.0-41.0); MEAN CORPUSCULAR HGB CONC 35.1 g/dl (33.0-37.0); MEAN PLATELET VOLUME 10.9 fl (9.6-12.3); MONO # 0.8 10*3/uL (0.1-1.0); MONO % 3.7 % (3.0-9.0); NEUT # 19.1 10*3/uL (2.3-7.9); NEUT % 85.8 % (47.0-73.0); PLATELET COUNT AUTOMATED 189 10*3/uL (130-400); RED BLOOD COUNT 4.32 10*6/uL (4.10-5.10); RED CELL DISTRI WIDTH 13.5 % (0-14.5); WHITE BLOOD COUNT 22.3 10*3/uL (4.8-10.8)
[2023-06-05 10:16] LABS: ALKALINE PHOSPHATASE 112 U/L (46-116); CHLORIDE 108 mmol/L (98-107); LIPASE 32 U/L (12-53); POTASSIUM 3.5 mmol/L (3.4-5.1); SGPT/ALT 19 U/L (5-49); TOTAL PROTEIN 6.8 gm/dL (6.0-8.0)
[2023-06-05 10:17] LABS: BUN < 5 mg/dl (9-23)
[2023-06-05 10:25] LABS: BILIRUBIN 2+ (Negative); BLOOD Negative (Negative); CLARITY Cloudy (Clear); COLOR Dark Yellow (Yellow); GLUCOSE Negative (Negative); KETONE 4+ (Negative); LEUKO ESTERASE Trace (Negative); NITRITE Negative (Negative); PH 5.5 (4.5-8.0); SPECIFIC GRAVITY >= 1.030 (1.001-1.030)
[2023-06-05 10:37] LABS: BACTERIA 2+
[2023-06-05 10:38] LABS: MUCOUS 1+
== END 2023-06-05 15:47 | disposition home or self-care (01) ==
LOC: ED 08:38
PROVIDERS: Emergency Medicine
DX: O23.43 Unspecified infection of urinary tract in pregnancy, third trimester (principal); Z20.822 Contact with and (suspected) exposure to COVID-19; N39.0 Urinary tract infection, site not specified; O21.8 Other vomiting complicating pregnancy; Z79.2 Long term (current) use of antibiotics; Z79.899 Other long term (current) drug therapy; Z3A.31 31 weeks gestation of pregnancy

== ENCOUNTER → 2023-08-07 | Outpatient (CLI) | payer OTHER | END | disposition home or self-care (01) | LOC: US 09:30 | PROVIDERS: ATTEND Family Medicine | DX: Z39.2 Encounter for routine postpartum follow-up (principal); O90.89 Other complications of the puerperium, not elsewhere classified; Z90.721 Acquired absence of ovaries, unilateral; Z3A.00 Weeks of gestation of pregnancy not specified ==